=== PATIENT | female | born 1965 | race Caucasian/White ===

== ENCOUNTER 2018-07-01 01:56 | Emergency (ER) | payer OTHER ==
[2018-07-01] MEDS ORDERED: morphine CARPU-JECT 4 MG/1 ML DISP.SYRIN IVPUSH ONE (02:20)
[2018-07-01] MEDS ORDERED: METOCLOPRAMIDE HCL INJECTION 10 MG/2 ML VIAL IVPUSH ONE (02:20)
[2018-07-01] MEDS ORDERED: RANITIDINE HCL 150 MG TABLET (FP) PO ONE (02:21)
[2018-07-01] MEDS ORDERED: RANITIDINE HCL 150 MG TABLET (FP) ONE (02:36)
[2018-07-01] MEDS ORDERED: METOCLOPRAMIDE HCL INJECTION 10 MG/2 ML VIAL ONE (02:36)
[2018-07-01] MEDS ORDERED: morphine SULFATE 4 MG/ML VIAL ONE (02:37)
[2018-07-01 02:41] VITALS: BP 138/92; PULSE 93; TEMP 97.6; BMI 20.1
--- NOTE | 2018-07-01 02:45 | PDOC ---
History of Present Illness - General Chief Complaint: Headache Stated Complaint: HEADACHE Time Seen by Provider: 07/01/18 02:15 History Source: Patient Exam Limitations: No Limitations - History of Present Illness Initial Comments: 07/01/18 02:40 53 y/o female with PMH of migrain headache came to hospital because of headache which started today, present in frontal part of head, 10/10 in intensity, throbbing type, increases with light, didn't get better with her meds. Reports couple of episodes of headache every month. Denies fever, chills, neck stiffness denies trauma, denies numbness or weakness in any part of body. Reports nausea but no vomiting. d Past History - Past Medical History Allergies/Adverse Reactions: Allergies Allergy/AdvReac Type Severity Reaction Status Date / Time No Known Allergies Allergy Verified 07/01/18 02:11 - Suicide/Smoking/Psychosocial Hx Smoking History: Current every day smoker Have you smoked in the past 12 months: Yes Number of Cigarettes Smoked Daily: 10 Information on smoking cessation initiated: No Hx Alcohol Use: No Drug/Substance Use Hx: No Review of Systems - Review of Systems Able to Perform ROS?: Yes Constitutional: Yes: Chills. No: Fever, Night Sweats HEENTM: Yes: Tearing. No: Eye Pain, Blurred Vision Respiratory: No: Cough, Shortness of Breath, Stridor, Wheezing Cardiac (ROS): No: Chest Pain, Edema, Irregular Heart Rate ABD/GI: Yes: Nausea. No: Abdominal Distended, Constipated, Diarrhea, Vomiting : No: Burning, Dysuria, Discharge Neurological: Yes: Headache. No: Numbness, Paresthesia, Seizure, Tingling, Tremors, Weakness *Physical Exam - Vital Signs Last Vital Signs Temp Pulse Resp BP Pulse Ox 97.6 F 93 H 20 138/92 100 07/01/18 02:10 07/01/18 02:10 07/01/18 02:10 07/01/18 02:10 07/01/18 02:10 - Physical Exam General Appearance: Yes: Appropriately Dressed, Apparent Distress HEENT: positive: EOMI Neck: positive: Supple. negative: Tender Respiratory/Chest: positive: Lungs Clear, Normal Breath Sounds. negative: Respiratory Distress, Accessory Muscle Use Cardiovascular: positive: Regular Rhythm, Regular Rate, S1, S2. negative: Edema Gastrointestinal/Abdominal: positive: Normal Bowel Sounds, Soft. negative: Tender Musculoskeletal: negative: Normal Inspection, CVA Tenderness Neurologic: positive: scrap burner II-XII NML intact, Fully Oriented, Alert, Normal Mood/ Affect, Normal Response, Motor Strength 02/17 ED Treatment Course - LABORATORY CBC & Chemistry Diagram: 07/01/18 02:38 07/01/18 02:38 Medical Decision Making - Medical Decision Making 07/01/18 02:46 This is a 71 y/o woman from [facility] with a significant past medical history of HTN, DM, Afib (on Xarelto). who was sent from [facility] because of high serum potassium. Patient denies chest pain, sob, palpitations, lightheadedness, dizziness, nausea, vomiting diarrhoea. we will get cbc, cmp, flu test we will give her reglan and morphine. 07/01/18 03:17 flu negative cbc reviewed. cmp reviewed 07/01/18 03:48 patient feels better. headache almost went away. Patient wants to go home. discussed with dr. omar prado can be dc home with follow up with her neurologist *DC/Admit/Observation/Transfer Diagnosis at time of Disposition: Migraine Qualifiers: Migraine type: unspecified Status migrainosus presence: without status migrainosus Intractability: not intractable Qualified Code(s): G43.909 - Migraine, unspecified, not intractable, without status migrainosus - Discharge Dispostion Condition at time of disposition: Stable Decision to Admit order: No - Referrals Referrals: Nina Brooke MD [Primary Care Provider] - - Patient Instructions Additional Instructions: Follow up with your neurologist. Take all your medications as you were taking it before. if headache comes back go to nearest er - Post Discharge Activity
[2018-07-01 02:49] LABS: BASO % 0.7 % (0-2.0); EOS % 2.4 % (0-4.5); HEMATOCRIT 38.2 % (32.4-45.2); HEMOGLOBIN 12.8 GM/dL (10.7-15.3); LYMPH % 23.2 % (8-40); MCHC 33.5 g/dl (32.0-36.0); MEAN CELL VOLUME 92.4 fl (80-96); MEAN PLT VOLUME 8.8 fl (7.5-11.1); MONO % 7.8 % (3.8-10.2); NEUT % 65.9 % (42.8-82.8); PLATELET COUNT 207 K/MM3 (134-434); RBC 4.13 M/mm3 (3.60-5.2); RDW 13.9 % (11.6-15.6); WHITE BLOOD COUNT 9.3 K/mm3 (4.0-10.0)
[2018-07-01 03:36] LABS: ALBUMIN 4.4 g/dl (3.4-5.0); ALK PHOS 85 U/L (45-117); ANION GAP 4 MMOL/L (8-16); BILIRUBIN,TOTAL 0.3 mg/dL (0.2-1.0); BLOOD UREA NITROGEN 16 mg/dL (7-18); CALCIUM 8.8 mg/dL (8.5-10.1); CHLORIDE 100 mmol/L (98-107); CO2 35 mmol/L (21-32); CREATININE 0.7 mg/dL (0.55-1.3); GLUCOSE,RANDOM 101 mg/dL (74-106); POTASSIUM 4.2 mmol/L (3.5-5.1); SGOT/AST 15 U/L (15-37); SGPT/ALT 19 U/L (13-61); SODIUM 139 mmol/L (136-145); TOT PROT 7.6 g/dl (6.4-8.2)
--- NOTE | 2018-07-01 04:07 | PDOC ---
Attending Attestation - Resident Resident Name: Ronald Foster - ED Attending Attestation I have performed the following: I have examined & evaluated the patient, The case was reviewed & discussed with the resident, I agree w/resident's findings & plan, Exceptions are as noted - HPI HPI: 07/01/18 04:04 53y F hx of migraines presents with gradual onset of frontal pounding headache associated with photophobia, phonophobia, nausea, consistent with prior headaches starting approx 11pm without associated vision changes, numbness/ tingling/weakness, neck pain/stiffness, fever/chills, chest pain, back pain, abd pain. pt following up with dr. parker for her headaches. . on exam pt well appearing in no distress neuro: face symmetric, motor 5/5 in upper/lower extermities and syymetric, normal gait, pupils 3mm and symmetricly reactive to light neck: no signs of meningusmus abd: sof tnontender suspect migraine headaches no red flags. pt feeling imrpoved with reglan requesting to go home. will dc with neuro fu as outpatient. retrn precautions were discussed - Physicial Exam PE: 07/01/18 22:20 see above - Medical Decision Making 07/01/18 22:20 see above
== END 2018-07-01 04:16 | disposition home or self-care (01) ==
LOC: JER 01:56
PROC: 3E033GC Introduction of Other Therapeutic Substance into Peripheral Vein, Percutaneous Approach (ICD-10-PCS; principal; 2018-07-01)
PROC: 3E033NZ Introduction of Analgesics, Hypnotics, Sedatives into Peripheral Vein, Percutaneous Approach (ICD-10-PCS; 2018-07-01)
DX: G43.909 Migraine, unspecified, not intractable, without status migrainosus (principal); I10 Essential (primary) hypertension; E11.9 Type 2 diabetes mellitus without complications; I48.91 Unspecified atrial fibrillation; Z79.01 Long term (current) use of anticoagulants; F17.210 Nicotine dependence, cigarettes, uncomplicated
CPT/HCPCS: 36415; 80053; 85025; 87804; 96374; 96375; 99281-25

== ENCOUNTER 2019-06-20 16:06 | Emergency (ER) | payer OTHER ==
--- NOTE | 2019-06-20 16:39 | PDOC ---
Attending Attestation - Resident Resident Name: AndersonHeather - ED Attending Attestation I have performed the following: I have examined & evaluated the patient, The case was reviewed & discussed with the resident, I agree w/resident's findings & plan, Exceptions are as noted - HPI HPI: 06/20/19 17:15 54yo female with hx of mdd, anxiety, fibromyalgia, and chronic pain from spinal disease with an accidental overdose today on her oxycodone 15mg IR tabs. Pt normally takes 3 tabs during the day. Pt states she found out about her adopted family yesterday and found out that the family carries the gene mutation for long qtc syndrome. Pt states since finding out she has been very upset and tearful. States she has a daughter and is very scared that if she carries the disease she may have passed it on to her daughter. Pt states she wasn't thinking and was in a lot of pain today. States over an hour period she took 5 tabs of her oxycodone 15mg tabs. States she took the meds around 2p and her daughter found her on the floor around 330p. Daughter called 911 and the medics gave 0.5mg narcan and pt became more arousable. Pt is currently aaox3. Pt denies SI/HI and states the overdose was accidental. Pt denies taking any other meds. 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 Brooke and psych tomorrow Heart Score/ECG Review - ECG Intrepretation Comment:: 06/20/19 20:45 sinus at 71, nl axis, nl interval, baseline artifact, no acute st/t wave findings
--- NOTE | 2019-06-20 16:58 | PDOC ---
History of Present Illness - General Chief Complaint: Overdose Stated Complaint: OVERDOSE Time Seen by Provider: 06/20/19 16:24 - History of Present Illness Initial Comments: Amarilys Keys is a 54yo woman with a PMH of fibromyalgia, chronic low back pain, anxiety who presents following an overdose of her home oxycodone. She states that she generally takes 15mg tablets 3 times per day. However today , she reports that her pain was especially severe due to not sleeping well or eating earlier today, and she took 5 tablets at the same time. She repeats several times that she was only trying to control her pain and was not intending to harm herself in any way. She additionally reports that she was upset today due to several personal events over the past day, and she was not thinking about the risk of overdose. She currently has no complaints other than anxiety; she reports that she was told yesterday that she needs to be tested for a genetic condition causing prolonged QTc and is very upset about her possible cardiac risk. Past History - Past Medical History Allergies/Adverse Reactions: Allergies Allergy/AdvReac Type Severity Reaction Status Date / Time No Known Allergies Allergy Verified 07/01/18 02:11 Home Medications: Ambulatory Orders Cephalexin [Keflex] 500 mg PO Q12H #10 capsule 06/20/19 COPD: No - Suicide/Smoking/Psychosocial Hx Smoking History: Current every day smoker Have you smoked in the past 12 months: Yes Number of Cigarettes Smoked Daily: 10 Hx Alcohol Use: No Drug/Substance Use Hx: No Review of Systems - Review of Systems Comments:: General: No fevers, no chills, no weight or appetite change, no malaise HEENT: No changes in vision, no changes in hearing, no congestion, no sore throat CV: No chest pain, no palpitations, no LE edema Pulm: No SOB, no cough, no wheezing GI: No nausea or vomiting, no change in bowel habits, no melena : No frequency, no urgency, no dysuria Musc: No back pain, no joint swelling, no recent injury Skin: No rash, no lesions, no erythema Endo: No excessive thirst, no heat/cold intolerance Heme: No unusual bruising or bleeding, no swollen glands Neuro: No syncope, no numbness/tingling, no focal weakness Vasc: No claudication Psych: +Anxiety, +depression, no SI or HI *Physical Exam - Physical Exam Comments: General: Comfortable, no acute distress HEENT: No apparent trauma, PERRL, EOMI, MMM, voice normal, normal neck ROM Cards: RRR, no murmur appreciated Pulm: Comfortable on room air, clear to auscultation bilaterally Abd: Soft, nontender, nondistended Ext: Atraumatic. No LE edema. ROM intact. Vasc: Extremities WWP. Skin: Normal color, no rashes or lesions Neuro: A&Ox3, CN grossly intact, normal speech, motor/sensory grossly intact and symmetric Psych: Anxious, crying ED Treatment Course - LABORATORY CBC & Chemistry Diagram: 06/20/19 17:30 06/20/19 17:20 - RADIOLOGY Radiology Studies Ordered: Category Date Time Status HEAD CT WITHOUT CONTRAST [CT] Stat CT Scan 06/20/19 16:39 Ordered Medical Decision Making - Medical Decision Making 06/20/19 16:44 Amarilys Keys is a 54yo woman with a PMH of fibromyalgia, chronic low back pain, anxiety who presents following an overdose of her home oxycodone, 5x15mg immediate release tablets, which she reports she took due to severe back pain. She also took one 0.5mg xanax today, prescribed for her anxiety. - Overdose appears accidental, pt denying SI or intent to harm herself. Has outpatient psychiatrist and psychologist, already called to schedule appointment for tomorrow - CBC, CMP, UA, tox workup to evaluate for other possible overdose, alcohol - EKG to eval for QTC or changes secondary to overdose - Head CT given unwitnessed fall - Currently A&O, vitals WNL, will monitor for 6 hrs 06/20/19 16:59 - Call to Dr Brooke (PMD) to update him regarding genetic risk, overdose. 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 Will treat - At CT, EkG to be completed - Will call poison control after EKG completed 06/20/19 20:07 - EKG to be completed - CT head without acute pathology 06/20/19 20:19 - EKG w/ NSR, HR 71, normal axis, normal intervals, no t-wave or ST changes - Spoke to [employer] (name Alex). Agree with plan to monitor for 6 hours, patient should be OK for discharge back to home - Will update pt and family Discussed with Dr Messina. Heather Anderson PGY2 *DC/Admit/Observation/Transfer Diagnosis at time of Disposition: Opiate overdose Qualifiers: Encounter type: initial encounter Injury intent: accidental or unintentional Qualified Code(s): T40.601A - Poisoning by unspecified narcotics, accidental ( unintentional), initial encounter - Discharge Dispostion Disposition: HOME Condition at time of disposition: Stable Decision to Admit order: No - Prescriptions Prescriptions: Cephalexin [Keflex] 500 mg PO Q12H #10 capsule - Referrals Referrals: Nina Brooke MD [Primary Care Provider] - - Patient Instructions Printed Discharge Instructions: DI for Drug Overdose in Adults Additional Instructions: Discharge Instructions: You were seen in the emergency department after an oxycodone overdose. Your blood tests were not concerning. Your EKG was normal. You were found to have a urinary tract infection and were given an antibiotic in the ED. Home Care and Follow Up: - You have been prescribed an antibiotic, Keflex, for your urinary tract infection. You were given the first dose in the hospital tonight. This will need to be taken morning and evening for 5 days to treat your infection. - Continue taking all of your home medications. Make sure you do not take more of your oxycodone or xanax than is prescribed as these medications can be dangerous if taken in excess. Overdose can cause impairment of breathing, heart function and can even lead to . - Call Dr Brooke first thing tomorrow morning to schedule an appointment within the next 1-2 days - Call your regular psychiatrist and psychologist tomorrow to schedule appointments. It would be best if you can be seen tomorrow. - Seek immediate medical care if you have any worsening symptoms, you consider hurting yourself or others, your pain is severe and/or uncontrollable, or you have any other medical emergency. If you ever take too many of your pain pills again in the future, present to the nearest ED for evaluation immediately. - Post Discharge Activity
[2019-06-20 17:20] VITALS: BP 136/82; PULSE 94; TEMP 97; BMI 18.3
[2019-06-20 17:47] LABS: BASO % 0.5 % (0-2.0); EOS % 0.6 % (0-4.5); HEMATOCRIT 35.5 % (32.4-45.2); HEMOGLOBIN 11.5 GM/dL (10.7-15.3); LYMPH % 8.3 % (8-40); MCH 30.5 pg (25.7-33.7); MCHC 32.4 g/dl (32.0-36.0); MEAN CELL VOLUME 94.1 fl (80-96); MEAN PLT VOLUME 9.1 fl (7.5-11.1); MONO % 4.9 % (3.8-10.2); NEUT % 85.7 % (42.8-82.8); PLATELET COUNT 219 K/MM3 (134-434); RBC 3.78 M/mm3 (3.60-5.2); RDW 14.6 % (11.6-15.6); WHITE BLOOD COUNT 14.6 K/mm3 (4.0-10.0)
[2019-06-20 18:00] LABS: EPI CELLS 7.1 /HPF (0-5/HPF); HYALINE CASTS 5 /lpf (0-8); URINE APPEARANCE CLEAR; URINE BACTERIA 22.5 /hpf (NEGATIVE); URINE BILIRUBIN NEGATIVE (NEGATIVE); URINE COLOR YELLOW; URINE GLUCOSE (UA) 1+ (NEGATIVE); URINE KETONE NEGATIVE (NEGATIVE); URINE LEUK ESTERASE 2+ (NEGATIVE); URINE NITRITE NEGATIVE (NEGATIVE); URINE PROTEIN TRACE (NEGATIVE); URINE RBC 2 /hpf (0-4); URINE UROBILINOGEN 0.2 mg/dL (0.2-1.0); URINE WBC 14 /hpf (0-5)
[2019-06-20 18:09] LABS: COCAINE, UR NEGATIVE ng/ml (CUTOFF=300); METHADONE, UR NEGATIVE ng/ml (CUTOFF=300); PHENCYCLIDINE,URINE NEGATIVE ng/ml (CUTOFF=25); URINE AMPHETAMINES NEGATIVE ng/ml (CUTOFF=500); URINE BARBITURATES NEGATIVE ng/ml (CUTOFF=200)
[2019-06-20 18:09] LABS: ALBUMIN 4.3 g/dl (3.4-5.0); ALK PHOS 101 U/L (45-117); ANION GAP 9 MMOL/L (8-16); BILIRUBIN,TOTAL 0.3 mg/dL (0.2-1); BLOOD UREA NITROGEN 23.1 mg/dL (7-18); CALCIUM 9.4 mg/dL (8.5-10.1); CHLORIDE 102 mmol/L (98-107); CO2 32 mmol/L (21-32); CREATININE 0.7 mg/dL (0.55-1.3); GLUCOSE,RANDOM 99 mg/dL (74-106); POTASSIUM 4.4 mmol/L (3.5-5.1); SGOT/AST 40 U/L (15-37); SGPT/ALT 32 U/L (13-61); SODIUM 142 mmol/L (136-145)
[2019-06-20 18:20] LABS: OPIATES, URI POSITIVE ng/ml (CUTOFF=300); URINE BENZODIAZEPINES POSITIVE ng/ml (CUTOFF=200)
[2019-06-20] MEDS ORDERED: CEPHALEXIN MONOHYDRATE 500 MG CAPSULE (UD) PO ONE (21:02)
--- NOTE | 2019-06-21 14:08 | EKG ---
Test Reason : Blood Pressure : / mmHG Vent. Rate : 071 BPM Atrial Rate : 071 BPM P-R Int : 178 ms QRS Dur : 102 ms QT Int : 392 ms P-R-T Axes : 054 070 052 degrees QTc Int : 425 ms NORMAL SINUS RHYTHM NORMAL ECG NO PREVIOUS ECGS AVAILABLE POOR DATA QUALITY, INTERPRETATION MAY BE ADVERSELY AFFECTED Confirmed by SHEFALI HARRIS MD ([id number]) on 06/21/2019 2:08:13 PM Referred By: Confirmed By:SHEFALI HARRIS MD
== END 2019-06-20 22:30 | disposition home or self-care (01) ==
LOC: JER 16:06
DX: T40.2X1A Poisoning by other opioids, accidental (unintentional), initial encounter (principal); T42.4X1A Poisoning by benzodiazepines, accidental (unintentional), initial encounter; Y92.018 Other place in single-family (private) house as the place of occurrence of the external cause; N39.0 Urinary tract infection, site not specified
CPT/HCPCS: 36415; 70450-TC; 80053; 80307; 81003; 85025; 93005; 93010; 99282-25

== ENCOUNTER 2019-07-09 08:13 | Inpatient (IN) | payer OTHER ==
[2019-07-09 08:54] VITALS: BMI 17.2
--- NOTE | 2019-07-09 09:39 | HP ---
COWS - Scale Resting Pulse: 1= UT 81-100 Sweatin= Chills/Flushing Restless Observation: 1= Difficult to Sit Still Pupil Size: 1= Pupils >than Normal Bone or Joint Aches: 1= Mild Discomfort Runny Nose/ Eye Tearin= Nasal Congestion GI Upset > 30mins: 2= Nausea/Diarrhea Tremor Observation: 2= Slight Tremor Visible Yawning Observation: 1= 1-2x During Session Anxiety or Irritability: 2=Irritable/Anxious Goose Flesh Skin: 0=Smooth Skin COWS Score: 13 CIWA Score - Admission Criteria [facility]ASAS Guidelines: Admission for Medically Managed Detox: Requires at least one of the followin. CIWA greater than 12 2. Seizures within the past 24 hours 3. Delirium tremens within the past 24 hours 4. Hallucinations within the past 24 hours 5. Acute intervention needed for co occurring medical disorder 6. Acute intervention needed for co occurring psychiatric disorder 7. Severe withdrawal that cannot be handled at a lower level of care (continued vomiting, continued diarrhea, abnormal vital signs) requiring intravenous medication and/or fluids 8. Admission ROS [facility] Chief Complaint: i would like to stop using pain killer roxycodone Allergies/Adverse Reactions: Allergies Allergy/AdvReac Type Severity Reaction Status Date / Time No Known Allergies Allergy Verified 07/09/19 08:40 History of Present Illness: this 54 years old female with opioid dependence,would like to stop,history of chronic low temitope pain herniated disc since 2010 has been under the care of pmd and on prscription,stated did not want to continue using any more,stated call pmd last night that she woullike to stop never been in detox before nicotine dependence 1/2 pack/day weight loss plan for surgery of back after detox anxiety and depression denied seizure denied syncope history of hypercholesterolemia also history of asthma has history of drug overdose before uti treated on antibiotics - Ebola screening Have you traveled outside of the country in the last 21 days: No (N) Have you had contact with anyone from an Ebola affected area: No Do you have a fever: No - Review of Systems Constitutional: Chills, Loss of Appetite, Malaise, Night Sweats, Changes in sleep, Weakness, Unintentional Wgt. Loss EENT: reports: Tearing, Nose Congestion Respiratory: reports: No Symptoms reported Cardiac: reports: No Symptoms Reported GI: reports: Diarrhea, Nausea, Abdominal cramping : reports: No Symptoms Reported Musculoskeletal: reports: Joint Pain, Muscle Pain, Neck Pain Integumentary: reports: Dryness Endocrine: reports: No Symptoms Reported Hematology: reports: No Symptoms Reported Psychiatric: reports: No Sypmtoms Reported, Judgement Intact, Mood/Affect Appropiate, Anxious, Depressed Other Systems: Reviewed and Negative Patient History - Patient Medical History Hx Anemia: No Hx Asthma: No Hx Chronic Obstructive Pulmonary Disease (COPD): No Hx Cancer: No Hx Cardiac Disorders: No Hx Congestive Heart Failure: No Hx Hypertension: No Hx Hypercholesterolemia: No Hx Pacemaker: No HX Cerebrovascular Accident: No Hx Seizures: No Hx Dementia: No Hx Diabetes: No Hx Gastrointestinal Disorders: No Hx Liver Disease: No Hx Genitourinary Disorders: No Hx Sexually Transmitted Disorders: No Hx Renal Disease (ESRD): No Hx Thyroid Disease: No Hx Human Immunodeficiency Virus (HIV): No (last 2017 negative) Hx Hepatitis C: No Hx Depression: Yes (on med) Hx Suicide Attempt: No Hx Bipolar Disorder: No Hx Schizophrenia: No Other Medical History: no suicidal,no homicidal - Patient Surgical History Past Surgical History: Yes Hx Breast Surgery: Yes (breat augmentation 2003) Hx Section: Yes (in 2000) - PPD History Previous Implant?: Yes Documented Results: Negative w/o proof Implanted On Prior R Admission?: No PPD to be Administered?: No - Reproductive History Patient is a Female of Child Bearing Age (11 -55 yrs old): Yes Last Menstrual Period: 09/30/15 Patient : No - Smoking Cessation Smoking history: Current every day smoker Have you smoked in the past 12 months: Yes Aproximately how many cigarettes per day: 10 Hx Chewing Tobacco Use: No Initiated information on smoking cessation: Yes 'Breaking Loose' booklet given: 07/09/19 - Substance & Tx. History Hx Alcohol Use: No Hx Substance Use: Yes Substance Use Type: Opiates Hx Substance Use Treatment: No - Substances abused Other Other (specify): Roxycodone Substance route: Oral Frequency: Daily Amount used: 15 mg theree timea a day.may go up to five time a day Age of first use: 47 Date of last use: 07/09/19 Admission Physical Exam BHS - Vital Signs Vital Signs: Vital Signs - 24 hr 07/09/19 08:39 Temperature 100.0 F H Pulse Rate 84 Respiratory 16 Rate Blood Pressure 114/64 - Physical General Appearance: Yes: Moderate Distress, Tremorous, Irritable, Sweating, Anxious HEENTM: Yes: Normal ENT Inspection, NE, Pharynx Normal Respiratory: Yes: Lungs Clear, Normal Breath Sounds, No Respiratory Distress Neck: Yes: Within Normal Limits, Supple, Trachea in good position Breast: Yes: Breast Exam Deferred Cardiology: Yes: Within Normal Limits, Regular Rhythm, Regular Rate, S1, S2 Abdominal: Yes: Within Normal Limits, Normal Bowel Sounds, Non Tender, Soft, Organomegaly Genitourinary: Yes: Within Normal Limits Back: Yes: Muscle Spasm Musculoskeletal: Yes: Back pain, Joint Stiffness, Muscle Pain Extremities: Yes: Normal Range of Motion, Tremors Neurological: Yes: administrative and program specialist II-XII NML intact, Fully Oriented, Alert, Motor Strength 5/5 Integumentary: Yes: Dry Lymphatic: Yes: Within Normal Limits - Diagnostic (1) Opioid dependence with withdrawal Current Visit: Yes Status: Acute (2) Weight loss Current Visit: Yes Status: Acute (3) Low back pain Current Visit: Yes Status: Chronic (4) Nicotine dependence Current Visit: Yes Status: Chronic (5) Anxiety and depression Current Visit: Yes Status: Acute (6) Hypercholesterolemia Current Visit: Yes Status: Chronic (7) Asthma Current Visit: Yes Status: Acute (8) UTI (urinary tract infection) Current Visit: Yes Status: Acute (9) History of breast augmentation Current Visit: Yes Status: Resolved (10) History of section Current Visit: Yes Status: Resolved Cleared for Admission S - Detox or Rehab [facility] Level of Care: Medically Managed Detox Regimen/Protocol: Methadone Urine Drug Screen - Test Device Lot number: [id number] Expiration date: 03/14/21 - Control Is test valid?: No - Results Drug screen NEGATIVE: No Urine drug screen results: THC-Marijuana, MOP-Opiates, OXY-Oxycodone, BZO- Benzodiazepines Inpatient Rehab Admission - Rehab Decision to Admit Inpatient rehab admission?: No
[2019-07-09] MEDS ORDERED: ACETAMINOPHEN 325 MG TABLET (FP) PO PRN ×2 (09:55)
[2019-07-09] MEDS ORDERED: BISMUTH SUBSALICYLATE 262 MG/15 ML BTL PO PRN (09:55)
[2019-07-09] MEDS ORDERED: METHOCARBAMOL 500 MG TABLET PO PRN (09:55)
[2019-07-09] MEDS ORDERED: MENTHOL/PHENOL 1 EACH UD MM PRN (09:55)
[2019-07-09] MEDS ORDERED: hydrOXYzine PAMOATE 25 MG CAPSULE (FP) PO PRN (09:55)
[2019-07-09] MEDS ORDERED: MAGNESIUM CITRATE 300 ML BOTTLE PO PRN (09:55)
[2019-07-09] MEDS ORDERED: MAGNESIUM HYDROX 2400MG/30ML ORAL SUSPENSION 30 ML CUP PO PRN (09:55)
[2019-07-09] MEDS ORDERED: METHADONE HCL 10 MG TABLET (FOR DETOX USE ONLY) PO ONE (09:55)
[2019-07-09] MEDS ORDERED: IBUPROFEN 400 MG TABLET (FP) PO PRN (09:55)
[2019-07-09] MEDS ORDERED: cloNIDine HCL 0.1 MG TABLET PO PRN (09:55)
[2019-07-09] MEDS ORDERED: diazePAM 5 MG TABLET PO PRN (10:01)
[2019-07-09] MEDS: PRENATAL VITAMINS W/ FOLIC ACID TABLET (FP) PO SCH (10:37)
[2019-07-09] MEDS: NICOTINE 21 MG/24 HOURS TOPICAL PATCH TD SCH (10:37)
[2019-07-09] MEDS ORDERED: ALBUTEROL SO4 8 GM HFA INHALER IH PRN (10:38)
[2019-07-09] MEDS: CEPHALEXIN MONOHYDRATE 500 MG CAPSULE (UD) PO SCH ×2 (11:44→17:38)
[2019-07-09 12:50] LABS: ALBUMIN 4.4 g/dl (3.4-5.0); BLOOD UREA NITROGEN 15.4 mg/dL (7-18); CALCIUM 9.4 mg/dL (8.5-10.1); CREATININE 0.7 mg/dL (0.55-1.3); HEMATOCRIT 42.2 % (32.4-45.2); HEMOGLOBIN 13.8 GM/dL (10.7-15.3); MCH 30.8 pg (25.7-33.7); MCHC 32.7 g/dl (32.0-36.0); MEAN PLT VOLUME 10.4 fl (7.5-11.1); PLATELET COUNT 197 K/MM3 (134-434); POTASSIUM 3.3 mmol/L (3.5-5.1); RBC 4.49 M/mm3 (3.60-5.2); RDW 14.5 % (11.6-15.6); TOT PROT 7.5 g/dl (6.4-8.2); WHITE BLOOD COUNT 18.4 K/mm3 (4.0-10.0)
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
[2019-07-09] MEDS: SERTRALINE HCL 25 MG TABLET (FP) PO SCH (15:31)
[2019-07-09] MEDS: MAG HYDROX/AL HYDROX/SIMETH 30 ML UNIT-DOSE CUP PO PRN (15:39)
[2019-07-09] MEDS: THIAMINE HCL 100 MG TABLET (FP) PO SCH (21:27)
[2019-07-09] MEDS: ATORVASTATIN CA 10 MG TABLET (FP) PO SCH (21:27)
[2019-07-09] MEDS: MELATONIN 5 MG TABLETS PO PRN (21:27)
[2019-07-10] MEDS: CEPHALEXIN MONOHYDRATE 500 MG CAPSULE (UD) PO SCH ×6 (05:46→23:01)
[2019-07-10] MEDS ORDERED: METHADONE HCL 10 MG TABLET (FOR DETOX USE ONLY) ONE (09:00)
[2019-07-10] MEDS ORDERED: METHADONE HCL 5 MG TABLET (FOR DETOX USE ONLY) ONE (09:00)
[2019-07-10] MEDS: PRENATAL VITAMINS W/ FOLIC ACID TABLET (FP) PO SCH (09:56)
[2019-07-10] MEDS: SERTRALINE HCL 25 MG TABLET (FP) PO SCH (09:56)
[2019-07-10] MEDS: NICOTINE 21 MG/24 HOURS TOPICAL PATCH TD SCH (09:56)
[2019-07-10] MEDS: MAG HYDROX/AL HYDROX/SIMETH 30 ML UNIT-DOSE CUP PO PRN (09:57)
[2019-07-10] MEDS ORDERED: METHADONE (DETOX) 20 MG, METHADONE (DETOX) 5 MG PO ONE (10:00)
--- NOTE | 2019-07-10 10:08 | PN ---
BHS COWS - Scale Resting Pulse: 0= NE 80 or Below Sweatin=Flushed/Facial Moisture Restless Observation: 1= Difficult to Sit Still Pupil Size: 0= Normal to Room Light Bone or Joint Aches: 2= Severe Diffuse Aches Runny Nose/ Eye Tearin= Nasal Congestion GI Upset > 30mins: 0= None Tremor Observation of Outstretched Hands: 2= Slight Tremor Visible Yawning Observation: 2= >3x During Session Anxiety or Irritability: 2=Irritable/Anxious Goose Flesh Skin: 0=Smooth Skin COWS Score: 12 BHS Progress Note (SOAP) Subjective: nausea shakes hot/cold sweats irritable agitation interrupted sleep Objective: 07/10/19 10:07 Vital Signs Temperature 100.4 F H 07/10/19 09:53 Pulse Rate 79 07/10/19 09:53 Respiratory Rate 18 07/10/19 09:53 Blood Pressure 107/61 07/10/19 09:53 O2 Sat by Pulse Oximetry (%) Laboratory Tests 07/09/19 07/09/19 07/09/19 09:08 10:00 10:00 WBC 18.4 H RBC 4.49 Hgb 13.8 Hct 42.2 D MCV 94.0 MCH 30.8 MCHC 32.7 RDW 14.5 Plt Count 197 MPV 10.4 D Sodium 137 Potassium 3.3 L Chloride 96 L Carbon Dioxide 30 Anion Gap 11 BUN 15.4 Creatinine 0.7 Est GFR (CKD-EPI)AfAm 114.65 Est GFR (CKD-EPI)NonAf 98.92 Random Glucose 111 H Calcium 9.4 Total Bilirubin 2.0 H AST 16 ALT 36 Alkaline Phosphatase 80 Total Protein 7.5 Albumin 4.4 POC Urine HCG, Qual Negative labs noted mild hypokalemia 3.3; 40meq x one ordered aaox3 ambulating no acute distress Assessment: 07/10/19 10:08 withdrawals sx Plan: continue detox increase fluids 40meq x one
[2019-07-10] MEDS ORDERED: POTASSIUM CHLORIDE TABS 20 MEQ TABLET.ER (FP) PO ONE (10:37)
[2019-07-10] MEDS: ONDANSETRON *ODT* 4 MG TABLET SL PRN ×2 (16:45→22:55)
[2019-07-10] MEDS: ATORVASTATIN CA 10 MG TABLET (FP) PO SCH (22:14)
[2019-07-10] MEDS: MELATONIN 5 MG TABLETS PO PRN (22:14)
[2019-07-10] MEDS: THIAMINE HCL 100 MG TABLET (FP) PO SCH (22:14)
[2019-07-11] MEDS: CEPHALEXIN MONOHYDRATE 500 MG CAPSULE (UD) PO SCH ×3 (05:36→17:40)
[2019-07-11 09:41] LABS: PH,URINE 7.5 (5.0-8.0); URINE APPEARANCE CLOUDY; URINE BILIRUBIN NEGATIVE (NEGATIVE); URINE COLOR YELLOW; URINE GLUCOSE (UA) NEGATIVE (NEGATIVE); URINE KETONE NEGATIVE (NEGATIVE); URINE LEUK ESTERASE NEGATIVE (NEGATIVE); URINE NITRITE NEGATIVE (NEGATIVE); URINE PROTEIN NEGATIVE (NEGATIVE)
[2019-07-11] MEDS ORDERED: METHADONE HCL 10 MG TABLET (FOR DETOX USE ONLY) PO ONE (10:00)
[2019-07-11] MEDS: SERTRALINE HCL 25 MG TABLET (FP) PO SCH (10:04)
[2019-07-11] MEDS: PRENATAL VITAMINS W/ FOLIC ACID TABLET (FP) PO SCH (10:04)
[2019-07-11] MEDS: NICOTINE 21 MG/24 HOURS TOPICAL PATCH TD SCH (10:05)
--- NOTE | 2019-07-11 11:54 | PN ---
BHS COWS - Scale Resting Pulse: 0= [place] 80 or Below Sweatin= Chills/Flushing Restless Observation: 0= Sits Still Pupil Size: 0= Normal to Room Light Bone or Joint Aches: 1= Mild Discomfort Runny Nose/ Eye Tearin= Nasal Congestion GI Upset > 30mins: 0= None Tremor Observation of Outstretched Hands: 1= Tremor [place], Not Seen Yawning Observation: 1= 1-2x During Session Anxiety or Irritability: 1=Feels Anxious/Irritable Goose Flesh Skin: 0=Smooth Skin COWS Score: 6 BHS Progress Note (SOAP) Subjective: sweats mild shakes anxiety interrupted sleep Objective: 07/11/19 11:52 Vital Signs Temperature 98.2 F 07/11/19 09:42 Pulse Rate 68 07/11/19 09:42 Respiratory Rate 16 07/11/19 09:42 Blood Pressure 94/57 L 07/11/19 09:42 O2 Sat by Pulse Oximetry (%) Laboratory Tests 07/09/19 07/09/19 07/09/19 09:08 10:00 10:00 WBC RBC Hgb Hct MCV MCH MCHC RDW Plt Count MPV Sodium Potassium Chloride Carbon Dioxide Anion Gap BUN Creatinine Est GFR (CKD-EPI)AfAm Est GFR (CKD-EPI)NonAf Random Glucose Calcium Total Bilirubin AST ALT Alkaline Phosphatase Total Protein Albumin Urine Color Urine Appearance Urine pH Ur Specific [place] Urine Protein Urine Glucose (UA) Urine Ketones Urine Blood Urine Nitrite Urine Bilirubin Urine Urobilinogen Ur Leukocyte Esterase POC Urine HCG, Qual Negative RPR Titer HIV 1&2 Ag/Ab, 4th Gen HIV 1&2 Antibody Screen Preliminary positive HIV P24 Antigen Negative TB (QFT) Incubation TB Test (QFT) Nil 0.20 TB Test (QFT) Mitogen >10.00 TB Test (QFT) Antigen 0.18 TB Test (QFT) Negative TB Positive Criteria 07/09/19 07/09/19 07/09/19 10:00 10:00 10:00 WBC 18.4 H RBC 4.49 Hgb 13.8 Hct 42.2 D MCV 94.0 MCH 30.8 MCHC 32.7 RDW 14.5 Plt Count 197 MPV 10.4 D Sodium 137 Potassium 3.3 L Chloride 96 L Carbon Dioxide 30 Anion Gap 11 BUN 15.4 Creatinine 0.7 Est GFR (CKD-EPI)AfAm 114.65 Est GFR (CKD-EPI)NonAf 98.92 Random Glucose 111 H Calcium 9.4 Total Bilirubin 2.0 H AST 16 ALT 36 Alkaline Phosphatase 80 Total Protein 7.5 Albumin 4.4 Urine Color Urine Appearance Urine pH Ur Specific [place] Urine Protein Urine Glucose (UA) Urine Ketones Urine Blood Urine Nitrite Urine Bilirubin Urine Urobilinogen Ur Leukocyte Esterase POC Urine HCG, Qual RPR Titer HIV 1&2 Ag/Ab, 4th Gen Non reactive HIV 1&2 Antibody Screen HIV P24 Antigen TB (QFT) Incubation TB Test (QFT) Nil TB Test (QFT) Mitogen TB Test (QFT) Antigen TB Test (QFT) TB Positive Criteria 07/10/19 07/11/19 07:45 08:00 WBC RBC Hgb Hct MCV MCH MCHC RDW Plt Count MPV Sodium Potassium Chloride Carbon Dioxide Anion Gap BUN Creatinine Est GFR (CKD-EPI)AfAm Est GFR (CKD-EPI)NonAf Random Glucose Calcium Total Bilirubin AST ALT Alkaline Phosphatase Total Protein Albumin Urine Color Yellow Urine Appearance Cloudy Urine pH 7.5 D Ur Specific [place] 1.016 Urine Protein Negative Urine Glucose (UA) Negative Urine Ketones Negative Urine Blood Negative Urine Nitrite Negative Urine Bilirubin Negative Urine Urobilinogen 1.0 Ur Leukocyte Esterase Negative POC Urine HCG, Qual RPR Titer Nonreactive HIV 1&2 Ag/Ab, 4th Gen HIV 1&2 Antibody Screen HIV P24 Antigen TB (QFT) Incubation TB Test (QFT) Nil TB Test (QFT) Mitogen TB Test (QFT) Antigen TB Test (QFT) TB Positive Criteria confirmatory for HIV results from [facility] indicate it is non-reactive. aaox3 ambulating no acute distress Assessment: 07/11/19 11:54 withdrawals sx Plan: continue detox increase fluids pt was made aware of her confirmatory report from [facility] that her HIV preliminary is non-reactive
[2019-07-11] MEDS: ONDANSETRON *ODT* 4 MG TABLET SL PRN ×2 (14:50→22:22)
[2019-07-11] MEDS: ATORVASTATIN CA 10 MG TABLET (FP) PO SCH (22:21)
[2019-07-11] MEDS: THIAMINE HCL 100 MG TABLET (FP) PO SCH (22:21)
[2019-07-12] MEDS: CEPHALEXIN MONOHYDRATE 500 MG CAPSULE (UD) PO SCH ×4 (00:08→17:15)
[2019-07-12] MEDS ORDERED: METHADONE HCL 5 MG TABLET (FOR DETOX USE ONLY) ONE (08:40)
[2019-07-12] MEDS ORDERED: METHADONE HCL 10 MG TABLET (FOR DETOX USE ONLY) ONE (08:40)
[2019-07-12] MEDS ORDERED: METHADONE (DETOX) 10 MG, METHADONE (DETOX) 5 MG PO ONE (10:00)
[2019-07-12] MEDS ORDERED: SUMAtriptan SUCCINATE 25 MG TABLET PO ONE (10:17)
[2019-07-12] MEDS: PRENATAL VITAMINS W/ FOLIC ACID TABLET (FP) PO SCH (10:19)
[2019-07-12] MEDS: SERTRALINE HCL 25 MG TABLET (FP) PO SCH (10:19)
[2019-07-12] MEDS: NICOTINE 21 MG/24 HOURS TOPICAL PATCH TD SCH (10:19)
--- NOTE | 2019-07-12 11:19 | PN ---
BHS COWS - Scale Resting Pulse: 0= [place] 80 or Below Sweatin= Chills/Flushing Restless Observation: 1= Difficult to Sit Still Pupil Size: 0= Normal to Room Light Bone or Joint Aches: 1= Mild Discomfort Runny Nose/ Eye Tearin= Nasal Congestion GI Upset > 30mins: 0= None Tremor Observation of Outstretched Hands: 0= None Yawning Observation: 0= None Anxiety or Irritability: 0= None Goose Flesh Skin: 0=Smooth Skin COWS Score: 4 BHS Progress Note (SOAP) Subjective: migraine headache sweats Objective: 07/12/19 11:15 Vital Signs Temperature 97.2 F L 07/12/19 09:32 Pulse Rate 60 07/12/19 09:32 Respiratory Rate 16 07/12/19 09:32 Blood Pressure 93/57 L 07/12/19 09:32 O2 Sat by Pulse Oximetry (%) aaox3 ambulating no acute distress Assessment: 07/12/19 11:19 mild withdrawals Plan: continue detox imitrex 25mg x one
--- NOTE | 2019-07-12 13:57 | EKG ---
Test Reason : Blood Pressure : / mmHG Vent. Rate : 052 BPM Atrial Rate : 052 BPM P-R Int : 166 ms QRS Dur : 088 ms QT Int : 408 ms P-R-T Axes : 032 075 064 degrees QTc Int : 379 ms SINUS BRADYCARDIA OTHERWISE NORMAL ECG Confirmed by SHEFALI HARRIS MD ([id number]) on 07/12/2019 1:57:20 PM Referred By: MIKA QUAN Confirmed By:SHEFALI HARRIS MD
[2019-07-12] MEDS: THIAMINE HCL 100 MG TABLET (FP) PO SCH (22:06)
[2019-07-12] MEDS: ATORVASTATIN CA 10 MG TABLET (FP) PO SCH (22:06)
[2019-07-12] MEDS: MELATONIN 5 MG TABLETS PO PRN (22:07)
[2019-07-13] MEDS: CEPHALEXIN MONOHYDRATE 500 MG CAPSULE (UD) PO SCH ×4 (00:19→17:26)
[2019-07-13] MEDS ORDERED: METHADONE HCL 10 MG TABLET (FOR DETOX USE ONLY) PO ONE (10:00)
[2019-07-13] MEDS: NICOTINE 21 MG/24 HOURS TOPICAL PATCH TD SCH (10:17)
[2019-07-13] MEDS: SERTRALINE HCL 25 MG TABLET (FP) PO SCH (10:17)
[2019-07-13] MEDS: PRENATAL VITAMINS W/ FOLIC ACID TABLET (FP) PO SCH (10:17)
--- NOTE | 2019-07-13 13:25 | PN ---
BHS COWS - Scale Resting Pulse: 0= [place] 80 or Below Sweatin= Chills/Flushing Restless Observation: 0= Sits Still Pupil Size: 0= Normal to Room Light Bone or Joint Aches: 2= Severe Diffuse Aches Runny Nose/ Eye Tearin= None GI Upset > 30mins: 0= None Tremor Observation of Outstretched Hands: 0= None Yawning Observation: 1= 1-2x During Session Anxiety or Irritability: 1=Feels Anxious/Irritable Goose Flesh Skin: 0=Smooth Skin COWS Score: 5 BHS Progress Note (SOAP) Subjective: c/o mild anxiety and irritability. Objective: 07/13/19 13:20 Vital Signs 07/13/19 07/13/19 07:47 09:48 Temperature 98.1 F 98.4 F Pulse Rate 55 L 67 Respiratory 16 16 Rate Blood Pressure 121/70 100/53 L Lab Results WBC 18.4 K/mm3 (4.0-10.0) H 07/09/19 10:00 RBC 4.49 M/mm3 (3.60-5.2) 07/09/19 10:00 Hgb 13.8 GM/dL (10.7-15.3) 07/09/19 10:00 Hct 42.2 % (32.4-45.2) D 07/09/19 10:00 MCV 94.0 fl (80-96) 07/09/19 10:00 MCHC 32.7 g/dl (32.0-36.0) 07/09/19 10:00 RDW 14.5 % (11.6-15.6) 07/09/19 10:00 Plt Count 197 K/MM3 (134-434) 07/09/19 10:00 Sodium 137 mmol/L (136-145) 07/09/19 10:00 Potassium 3.3 mmol/L (3.5-5.1) L 07/09/19 10:00 Chloride 96 mmol/L (98-107) L 07/09/19 10:00 Carbon Dioxide 30 mmol/L (21-32) 07/09/19 10:00 Anion Gap 11 MMOL/L (8-16) 07/09/19 10:00 BUN 15.4 mg/dL (7-18) 07/09/19 10:00 Creatinine 0.7 mg/dL (0.55-1.3) 07/09/19 10:00 Random Glucose 111 mg/dL (74-106) H 07/09/19 10:00 Calcium 9.4 mg/dL (8.5-10.1) 07/09/19 10:00 Labs noted. Assessment: 07/13/19 13:21 Pt is alert and oriented x3 and in no acute respiratory distress. Full ROM, ambulating in the unit. Withdrawal symptoms. For d/c tomorrow, pt states she has an appointment with her PMD on (07/18/2019). pt already received potassium 40meq on 07/09/19 for K+ level of 3.3. 07/13/19 13:26 Plan: continue detox. Prescription sent for albuterol inhaler and 7days supply of atorvastatin.
[2019-07-13] MEDS: ATORVASTATIN CA 10 MG TABLET (FP) PO SCH (21:26)
[2019-07-13] MEDS: MELATONIN 5 MG TABLETS PO PRN (21:26)
[2019-07-13] MEDS: THIAMINE HCL 100 MG TABLET (FP) PO SCH (21:26)
[2019-07-14] MEDS: CEPHALEXIN MONOHYDRATE 500 MG CAPSULE (UD) PO SCH ×3 (05:42→12:21)
[2019-07-14] MEDS ORDERED: METHADONE HCL 5 MG TABLET (FOR DETOX USE ONLY) PO ONE (06:00)
[2019-07-14] MEDS: PRENATAL VITAMINS W/ FOLIC ACID TABLET (FP) PO SCH (10:20)
[2019-07-14] MEDS: NICOTINE 21 MG/24 HOURS TOPICAL PATCH TD SCH (10:20)
[2019-07-14] MEDS: SERTRALINE HCL 25 MG TABLET (FP) PO SCH (10:20)
[2019-07-14 11:11] LABS: BASO % 0.8 % (0-2.0); EOS % 2.3 % (0-4.5); HEMATOCRIT 40.1 % (32.4-45.2); HEMOGLOBIN 13.3 GM/dL (10.7-15.3); LYMPH % 28.8 % (8-40); MCH 30.9 pg (25.7-33.7); MCHC 33.1 g/dl (32.0-36.0); MEAN CELL VOLUME 93.4 fl (80-96); MEAN PLT VOLUME 10.1 fl (7.5-11.1); MONO % 9.1 % (3.8-10.2); PLATELET COUNT 270 K/MM3 (134-434); RBC 4.29 M/mm3 (3.60-5.2); RDW 14.1 % (11.6-15.6)
[2019-07-14 11:18] LABS: BILIRUBIN,TOTAL 0.4 mg/dL (0.2-1); POTASSIUM 4.4 mmol/L (3.5-5.1)
[2019-07-14 12:00] VITALS: BP 94/71; PULSE 90; TEMP 99.3
--- NOTE | 2019-07-14 12:40 | DS ---
[facility] Detox Discharge Summary Admission Date: 07/09/19 Discharge Date: 07/14/19 - History Present History: Alcohol Dependence Additional Comments: Patient completed detox successfully and discharged safely. Discharge was initially held due to leukocytosis. Patient requesting to be discharged today. Patient stated she was Rx keflex at at [facility] but didn't take it as Rx but she has been taking it here every day and feels better. WBC repeated and leukocytosis resolved. Patient instructed to follow up with PCP within 1-2 weeks for all medical problems. Pertinent Past History: ETOH Acute UTI (on antibiotic) Asthma HLD Nicotine dependence Depression - Physical Exam Results Vital Signs: Vital Signs Temperature 99.3 F 07/14/19 11:59 Pulse Rate 90 07/14/19 11:59 Respiratory Rate 16 07/14/19 11:59 Blood Pressure 94/71 07/14/19 11:59 O2 Sat by Pulse Oximetry (%) Pertinent Admission Physical Exam Findings: Withdrawal sxs Laboratory Tests 07/09/19 07/09/19 07/09/19 09:08 10:00 10:00 WBC RBC Hgb Hct MCV MCH MCHC RDW Plt Count MPV Absolute Neuts (auto) Neutrophils % Lymphocytes % Monocytes % Eosinophils % Basophils % Nucleated RBC % Sodium Potassium Chloride Carbon Dioxide Anion Gap BUN Creatinine Est GFR (CKD-EPI)AfAm Est GFR (CKD-EPI)NonAf Random Glucose Calcium Total Bilirubin AST ALT Alkaline Phosphatase Total Protein Albumin Urine Color Urine Appearance Urine pH Ur Specific [place] Urine Protein Urine Glucose (UA) Urine Ketones Urine Blood Urine Nitrite Urine Bilirubin Urine Urobilinogen Ur Leukocyte Esterase POC Urine HCG, Qual Negative RPR Titer HIV 1&2 Ag/Ab, 4th Gen HIV 1&2 Antibody Screen Preliminary positive HIV P24 Antigen Negative TB (QFT) Incubation TB Test (QFT) Nil 0.20 TB Test (QFT) Mitogen >10.00 TB Test (QFT) Antigen 0.18 TB Test (QFT) Negative TB Positive Criteria 07/09/19 07/09/19 07/09/19 10:00 10:00 10:00 WBC 18.4 H RBC 4.49 Hgb 13.8 Hct 42.2 D MCV 94.0 MCH 30.8 MCHC 32.7 RDW 14.5 Plt Count 197 MPV 10.4 D Absolute Neuts (auto) Neutrophils % Lymphocytes % Monocytes % Eosinophils % Basophils % Nucleated RBC % Sodium 137 Potassium 3.3 L Chloride 96 L Carbon Dioxide 30 Anion Gap 11 BUN 15.4 Creatinine 0.7 Est GFR (CKD-EPI)AfAm 114.65 Est GFR (CKD-EPI)NonAf 98.92 Random Glucose 111 H Calcium 9.4 Total Bilirubin 2.0 H AST 16 ALT 36 Alkaline Phosphatase 80 Total Protein 7.5 Albumin 4.4 Urine Color Urine Appearance Urine pH Ur Specific [place] Urine Protein Urine Glucose (UA) Urine Ketones Urine Blood Urine Nitrite Urine Bilirubin Urine Urobilinogen Ur Leukocyte Esterase POC Urine HCG, Qual RPR Titer HIV 1&2 Ag/Ab, 4th Gen Non reactive HIV 1&2 Antibody Screen HIV P24 Antigen TB (QFT) Incubation TB Test (QFT) Nil TB Test (QFT) Mitogen TB Test (QFT) Antigen TB Test (QFT) TB Positive Criteria 07/10/19 07/11/19 07/14/19 07:45 08:00 09:35 WBC 7.0 RBC 4.29 Hgb 13.3 Hct 40.1 MCV 93.4 MCH 30.9 MCHC 33.1 RDW 14.1 Plt Count 270 D MPV 10.1 Absolute Neuts (auto) 4.2 Neutrophils % 59.0 D Lymphocytes % 28.8 D Monocytes % 9.1 D Eosinophils % 2.3 D Basophils % 0.8 Nucleated RBC % 0 Sodium Potassium Chloride Carbon Dioxide Anion Gap BUN Creatinine Est GFR (CKD-EPI)AfAm Est GFR (CKD-EPI)NonAf Random Glucose Calcium Total Bilirubin AST ALT Alkaline Phosphatase Total Protein Albumin Urine Color Yellow Urine Appearance Cloudy Urine pH 7.5 D Ur Specific [place] 1.016 Urine Protein Negative Urine Glucose (UA) Negative Urine Ketones Negative Urine Blood Negative Urine Nitrite Negative Urine Bilirubin Negative Urine Urobilinogen 1.0 Ur Leukocyte Esterase Negative POC Urine HCG, Qual RPR Titer Nonreactive HIV 1&2 Ag/Ab, 4th Gen HIV 1&2 Antibody Screen HIV P24 Antigen TB (QFT) Incubation TB Test (QFT) Nil TB Test (QFT) Mitogen TB Test (QFT) Antigen TB Test (QFT) TB Positive Criteria 07/14/19 09:35 WBC RBC Hgb Hct MCV MCH MCHC RDW Plt Count MPV Absolute Neuts (auto) Neutrophils % Lymphocytes % Monocytes % Eosinophils % Basophils % Nucleated RBC % Sodium Potassium 4.4 Chloride Carbon Dioxide Anion Gap BUN Creatinine Est GFR (CKD-EPI)AfAm Est GFR (CKD-EPI)NonAf Random Glucose Calcium Total Bilirubin 0.4 AST ALT Alkaline Phosphatase Total Protein Albumin Urine Color Urine Appearance Urine pH Ur Specific [place] Urine Protein Urine Glucose (UA) Urine Ketones Urine Blood Urine Nitrite Urine Bilirubin Urine Urobilinogen Ur Leukocyte Esterase POC Urine HCG, Qual RPR Titer HIV 1&2 Ag/Ab, 4th Gen HIV 1&2 Antibody Screen HIV P24 Antigen TB (QFT) Incubation TB Test (QFT) Nil TB Test (QFT) Mitogen TB Test (QFT) Antigen TB Test (QFT) TB Positive Criteria Labs reviewed: wbc 7.0 >> 18.4, total bilirubin 0.4>>2, K 4.4 >>3.3 - Treatment Hospital Course: Detox Protocol Followed, Detoxed Safely, Responded well, Discharged Condition Good - Medication Discharge Medications: Ambulatory Orders Cephalexin [Keflex] 500 mg PO Q12H #10 capsule 06/20/19 Albuterol Sulfate Inhaler - [Ventolin Hfa Inhaler -] 2 inh PO Q4H PRN #1 inhaler 07/13/19 Atorvastatin Ca [Lipitor] 10 mg PO HS 7 Days #7 tablet 07/13/19 - Diagnosis (1) Leukocytosis Current Visit: Yes Status: Resolved (2) Total bilirubin, elevated Current Visit: Yes Status: Resolved (3) Hypokalemia Current Visit: Yes Status: Resolved (4) Alcohol dependence with uncomplicated withdrawal Current Visit: Yes Status: Acute (5) Anxiety and depression Current Visit: Yes Status: Chronic (6) Asthma Current Visit: Yes Status: Chronic (7) UTI (urinary tract infection) Current Visit: Yes Status: Acute (8) Hypercholesterolemia Current Visit: Yes Status: Chronic (9) Nicotine dependence Current Visit: Yes Status: Chronic - AMA Did Patient Leave Against Medical Advice: No (Instructed to follow up with PCP within 1-2 weeks)
== END 2019-07-14 12:51 | disposition home or self-care (01) | DRG 773 ==
LOC: YASAS 08:13 → Y6N 09:54
PROVIDERS: ADMIT Surgery; ATTEND Surgery
PROC: HZ2ZZZZ Detoxification Services for Substance Abuse Treatment (ICD-10-PCS; principal; 2019-07-09)
DX: F11.23 Opioid dependence with withdrawal (principal); F17.210 Nicotine dependence, cigarettes, uncomplicated; F41.9 Anxiety disorder, unspecified; F32.9 Major depressive disorder, single episode, unspecified; F19.24 Other psychoactive substance dependence with psychoactive substance-induced mood disorder; F19.282 Other psychoactive substance dependence with psychoactive substance-induced sleep disorder; E87.6 Hypokalemia; E80.6 Other disorders of bilirubin metabolism; E78.5 Hyperlipidemia, unspecified; D72.829 Elevated white blood cell count, unspecified; J45.909 Unspecified asthma, uncomplicated; N39.0 Urinary tract infection, site not specified; M54.5 Low back pain; G89.29 Other chronic pain; R76.11 Nonspecific reaction to tuberculin skin test without active tuberculosis
CPT/HCPCS: 36415; 80053; 81003; 81025; 82247; 84132; 85025; 85027; 86480; 86593; 87389; 93005; 93010; Q0162

== ENCOUNTER 2023-01-28 11:30 | Day surgery (SDC) | payer OTHER ==
[2023-01-28] MEDS ORDERED: IRON SUCROSE INJECTION 200 MG in SODIUM CHLORIDE 100 ML IVPB ONE (12:45)
[2023-01-28 14:11] VITALS: BP 100/63; PULSE 77; RESP 14; TEMP 98.3
== END 2023-01-28 14:17 | disposition home or self-care (01) ==
LOC: FINFUSION 11:30 → FM/S 12:57 → FINFUSION 14:17
PROVIDERS: ATTEND Family Medicine
PROC: 3E033GC Introduction of Other Therapeutic Substance into Peripheral Vein, Percutaneous Approach (ICD-10-PCS; principal; 2023-01-28)
DX: D50.9 Iron deficiency anemia, unspecified (principal)
CPT/HCPCS: 96365; J1756

== ENCOUNTER 2023-02-04 11:42 | Day surgery (SDC) | payer OTHER ==
[2023-02-04] MEDS ORDERED: IRON SUCROSE INJECTION 200 MG in SODIUM CHLORIDE 100 ML IVPB ONE (11:45)
[2023-02-04 12:55] VITALS: BP 106/65; PULSE 77; RESP 14; TEMP 98.4
== END 2023-02-04 12:57 | disposition home or self-care (01) ==
LOC: FINFUSION 11:42 → FM/S 11:43 → FINFUSION 12:57
PROVIDERS: ATTEND Family Medicine
PROC: 3E033GC Introduction of Other Therapeutic Substance into Peripheral Vein, Percutaneous Approach (ICD-10-PCS; principal; 2023-02-04)
DX: D50.9 Iron deficiency anemia, unspecified (principal)
CPT/HCPCS: 96365; J1756

== ENCOUNTER 2023-02-11 11:32 | Day surgery (SDC) | payer OTHER ==
[2023-02-11] MEDS ORDERED: IRON SUCROSE INJECTION 200 MG in SODIUM CHLORIDE 100 ML IVPB ONE (12:00)
[2023-02-11 12:51] VITALS: BP 99/61; PULSE 84; RESP 14; TEMP 99.3
== END 2023-02-11 12:56 | disposition home or self-care (01) ==
LOC: FINFUSION 11:32 → FM/S 11:34 → FINFUSION 12:56
PROVIDERS: ATTEND Family Medicine
PROC: 3E033GC Introduction of Other Therapeutic Substance into Peripheral Vein, Percutaneous Approach (ICD-10-PCS; principal; 2023-02-11)
DX: D50.9 Iron deficiency anemia, unspecified (principal)
CPT/HCPCS: 96365; J1756

== ENCOUNTER 2024-02-26 04:27 | Day surgery (SDC) | payer OTHER ==
[2024-02-22 10:57] VITALS: BMI 23.3
[2024-02-26] MEDS ORDERED: FENTANYL CITRATE/PF 50 MCG/ML VIAL ONE ×2 (12:31→12:51)
[2024-02-26] MEDS ORDERED: MIDAZOLAM HCL 2 MG/2 ML SINGLE DOSE VIAL ONE ×2 (12:31→12:40)
[2024-02-26 13:13] VITALS: RESP 20; TEMP 97.5
[2024-02-26 14:25] VITALS: BP 126/69; PULSE 78
== END 2024-02-26 14:27 | disposition home or self-care (01) ==
LOC: JASU-SURG 04:27
PROVIDERS: ATTEND Urology
PROC: 0TF3XZZ Fragmentation in Right Kidney Pelvis, External Approach (ICD-10-PCS; principal; 2024-02-26 11:30)
DX: N20.0 Calculus of kidney (principal)

== ENCOUNTER 2025-02-12 06:12 | Day surgery (SDC) | payer MEDICARE, OTHER ==
[2025-02-07 11:51] VITALS: BMI 25.0
[2025-02-12 09:55] LABS: ABSOLUTE IMMATURE GRANULOCYTES 0.04 x10^3/uL (0.0-0.031); BASOPHILS # 0.06 x10^3/uL (0.01-0.08); EOSINOPHIL % 3.3 % (0.7-5.8); EOSINOPHILS # 0.17 x10^3/uL (0.04-0.36); HEMATOCRIT 39.2 % (34.1-44.9); HEMOGLOBIN 12.3 g/dL (11.2-15.7); MCHC 31.4 g/dl (32.2-35.5); MEAN CELL VOLUME 93.8 fl (79.4-94.8); MEAN PLT VOLUME 10.6 fl (9.4-12.3); MONOCYTE # 0.54 x10^3/uL (0.24-0.86); MONOCYTE % 10.5 % (4.7-12.5); PLATELET COUNT 224 x10^3/uL (182-369); RDW 12.7 % (12.3-16.6)
[2025-02-12 10:03] LABS: INR 1.35 (0.83-1.09); PROTHROMBIN TIME (PATIENT) 14.7 SEC (9.7-13.0)
[2025-02-12] MEDS ORDERED: FENTANYL CITRATE/PF 50 MCG/ML VIAL ONE (11:41)
[2025-02-12] MEDS ORDERED: MIDAZOLAM HCL 2 MG/2 ML SINGLE DOSE VIAL ONE (11:41)
[2025-02-12] MEDS: SODIUM CHLORIDE 500 ML IV ONE (12:25)
[2025-02-12] MEDS: FENTANYL CITRATE/PF 50 MCG/ML VIAL IVPUSH ONE (12:32)
[2025-02-12] MEDS: MIDAZOLAM HCL 2 MG/2 ML SINGLE DOSE VIAL IVPUSH ONE (12:32)
[2025-02-12 13:37] VITALS: TEMP 97.7
[2025-02-12 14:33] VITALS: BP 112/78; PULSE 77; RESP 18
== END 2025-02-12 14:36 | disposition home or self-care (01) ==
LOC: JRADIR 06:12
PROVIDERS: ATTEND Internal Medicine
PROC: 0TB43ZX Excision of Left Kidney Pelvis, Percutaneous Approach, Diagnostic (ICD-10-PCS; principal; 2025-02-12)
DX: N28.89 Other specified disorders of kidney and ureter (principal); Z53.8 Procedure and treatment not carried out for other reasons
CPT/HCPCS: 36415; 49180; 77012-TC; 85025; 85610